=== PATIENT | female | born 1985 | race Two or more races ===

== ENCOUNTER 2022-10-24 12:21 | Emergency (ER) | payer MEDICAID, SELFPAY ==
--- NOTE | ~2022-10-24 | XR_ITS ---
Examination: X-ray left ankle X-ray left foot CLINICAL HISTORY: Foot pain. Heel pain. TECHNIQUE: Left ankle 2 views. Left foot 3 views. COMPARISON: None FINDINGS: Left ankle: Soft tissue swelling. No evidence of acute fracture or dislocation. Talar dome is intact. Ankle mortise appears maintained. Foot: No visible acute fracture or dislocation. Alignment is anatomic. Joint spaces are maintained. Moderate plantar calcaneal spur. Small-moderate Achilles tendon insertional spurring. XR/XR ankle LT min 3V IMPRESSION: No radiographic evidence of acute fracture or dislocation. Follow-up imaging for reassessment as clinically warranted. Calcaneal spurring.
--- NOTE | ~2022-10-24 | XR_ITS ---
Examination: X-ray left ankle X-ray left foot CLINICAL HISTORY: Foot pain. Heel pain. TECHNIQUE: Left ankle 2 views. Left foot 3 views. COMPARISON: None FINDINGS: Left ankle: Soft tissue swelling. No evidence of acute fracture or dislocation. Talar dome is intact. Ankle mortise appears maintained. Foot: No visible acute fracture or dislocation. Alignment is anatomic. Joint spaces are maintained. Moderate plantar calcaneal spur. Small-moderate Achilles tendon insertional spurring. XR/XR foot LT 2V IMPRESSION: No radiographic evidence of acute fracture or dislocation. Follow-up imaging for reassessment as clinically warranted. Calcaneal spurring.
[2022-10-24 13:13] VITALS: BP 138/75; PULSE 77; RESP 16; TEMP 36.3; O2SAT 100; BMI 36.6
--- NOTE | 2022-10-24 13:16 | ED.GENADULT ---
HPI - General Adult General Chief complaint: Extremity Injury, Lower <SAHARA Lr - Last Filed: 10/24/22 20:03> Stated complaint: l foot inj <SAHARA Lr - Last Filed: 10/24/22 20:03> Time Seen by Provider: 10/24/22 14:27 <SAHARA Lr - Last Filed: 10/24/22 20:03> Source: patient <SAHARA Shepard Last Filed: 10/24/22 17:30> Mode of arrival: ambulatory <SAHARA Shepard Last Filed: 10/24/22 17:30> Limitations: no limitations <SAHARA Shepard Last Filed: 10/24/22 17:30> History of Present Illness HPI narrative: Patient is a 37 year old assigned female at with no significant PMH presenting to the emergency department today with left plantar foot pain that is worse in the morning x3 days. Patient states that she was walking with a new pair of shoes on Monday and had noticed a sharp pain on the plantar aspect of her left foot since. Patient denies any dizziness, lightheadedness, abdominal pain, nausea, vomiting, fever, chills, blurry vision, double vision, loss of vision, chest pain, difficulty breathing, shortness of breath, back pain, night sweats, pain with urination, increased urinary frequency, increased urinary urgency, blood in her urine or stool, syncope or a near syncopal episode, recent trauma or falls, bowel incontinence, bladder incontinence, bowel retention, bladder retention, or any other complaints at this time. <SAHARA Shepard - Last Filed: 10/24/22 17:30> Onset (ago): day(s) (3) <SAHARA Shepard - Last Filed: 10/24/22 17:30> Location: left and lower extremity <SAHARA Shepard Last Filed: 10/24/22 17:30> Radiation: non-radiation <SAHARA Shepard Last Filed: 10/24/22 17:30> Quality: sharp <SAHARA Shepard Last Filed: 10/24/22 17:30> Relieving factors: immobilization <SAHARA Shepard Last Filed: 10/24/22 17:30> Exacerbating factors: movement <SAHARA Shepard - Last Filed: 10/24/22 17:30> Related Data Allergies/adverse reactions: Allergies Allergy/AdvReac Type Severity Reaction Status Date / Time No Known Allergies Allergy Verified 10/24/22 13:12 <SAHARA Lr - Last Filed: 10/24/22 20:03> Review of Systems Review of Systems: Yes all other systems are reviewed and are negative <SAHARA Shepard - Last Filed: 10/24/22 17:30> Constitutional: Constitutional: Reports no additional constitutional complaints <SAHARA Shepard - Last Filed: 10/24/22 17:30> Eyes: Eyes: Reports no additional eye complaints <SAHARA Shepard - Last Filed: 10/24/22 17:30> ENT: Reports system reviewed and no additional complaints, except as documented <SAHARA Shepard Last Filed: 10/24/22 17:30> Cardiovascular: Cardiovascular: Reports no additional cardiovascular complaints <SAHARA Shepard - Last Filed: 10/24/22 17:30> Respiratory: Respiratory: Reports no additional respiratory complaints <SAHARA Shepard - Last Filed: 10/24/22 17:30> Gastrointestinal: Gastrointestinal: Reports no additional gastrointestinal complaints <SAHARA Shepard Last Filed: 10/24/22 17:30> Genitourinary: Genitourinary: Reports no additional female genitourinary complaints <SAHARA Shepard - Last Filed: 10/24/22 17:30> Musculoskeletal: Musculoskeletal: Reports as per HPI, Denies deformity, Denies arthralgias, Denies joint swelling, Denies muscle weakness and Denies numbness <SAHARA Shepard - Last Filed: 10/24/22 17:30> Comments: left foot pain <SAHARA Shepard - Last Filed: 10/24/22 17:30> Neurologic: Reports system reviewed and no additional complaints, except as documented and Denies numbness <SAHARA Shepard Last Filed: 10/24/22 17:30> Psychiatric: Psychiatric: Reports no additional psychiatric complaints <SAHARA Shepard Last Filed: 10/24/22 17:30> Endocrine: Endocrine: Reports no additional endocrine complaints <SAHARA Shepard - Last Filed: 10/24/22 17:30> Hematologic/Lymphatic: Hematologic/Lymphatic: Reports no additional hematologic/lymphatic complaints <SAHARA Shepard - Last Filed: 10/24/22 17:30> Allergic/Immunologic: Allergic/Immunologic: Reports no additional allergic/immunologic complaints <SAHARA Shepard - Last Filed: 10/24/22 17:30> PMFSH Past Medical History Attestation statement: The following information was validated with the patient. <SAHARA Shepard - Last Filed: 10/24/22 17:30> Source: old records reviewed and nursing notes reviewed <SAHARA Shepard - Last Filed: 10/24/22 17:30> Social History Social History: Social History Advance Directives: No Advance Directives Information Provided: Yes <SAHARA Lr - Last Filed: 10/24/22 20:03> Physical Exam ED Vital Signs: Vital Signs - 24 hr 10/24/22 13:13 Temperature 97.3 F Pulse Rate 77 Respiratory Rate 16 Blood Pressure 138/75 Pulse Oximetry 100 Oxygen Delivery Method Room Air BMI result Body Mass Index 36.6 <SAHARA Lr - Last Filed: 10/24/22 20:03> Vital Signs - 24 hr 10/24/22 13:13 Temperature 97.3 F Pulse Rate 77 Respiratory Rate 16 Blood Pressure 138/75 Pulse Oximetry 100 Oxygen Delivery Method Room Air BMI result Body Mass Index 36.6 <SAHARA Shepard - Last Filed: 10/24/22 17:30> Const General: cooperative and healthy appearing <SAHARA Sheprad - Last Filed: 10/24/22 17:30> Nutritional Appearance: well nourished <SAHARA Shepard - Last Filed: 10/24/22 17:30> Orientation/consciousness: oriented to person, oriented to place, oriented to time and patient oriented x3 <SAHARA Shepard - Last Filed: 10/24/22 17:30> Limitations: no limitations <SAHARA Shepard Last Filed: 10/24/22 17:30> HENMT Head: Yes normal to inspection <Elif Mendoza PA - Last Filed: 10/24/22 17:30> Ears: hearing grossly normal bilaterally <Elif SchreiberSAHARA dobbins - Last Filed: 10/24/22 17:30> General nose exam: Normal external nose present <Elif MendozaSAHARA - Last Filed: 10/24/22 17:30> Face and sinus: Yes normal facial exam, No abrasion and No laceration <Elif SchreiberSAHARA dobbins - Last Filed: 10/24/22 17:30> Mouth: Normal oral and palatal mucosa present, no drooling and no muffled voice <Elif Schreibershilpi PA - Last Filed: 10/24/22 17:30> Eyes General: appearance normal, both eyes and all related structures <Elif SchreiberSAHARA dobbins - Last Filed: 10/24/22 17:30> Periorbital: periorbital findings normal <Elif SchreiberSAHARA dobbins - Last Filed: 10/24/22 17:30> Eyelids: Yes eyelids normal <Elif SchreiberSAHARA dobbins - Last Filed: 10/24/22 17:30> Conjunctivae: conjunctivae normal <Elif Schreibershilpi IN - Last Filed: 10/24/22 17:30> Pupils: Equal, round and reactive pupils present <Elif SchreiberSAHARA dobbins - Last Filed: 10/24/22 17:30> EOM: EOMs intact bilaterally <Elif SchreiberSAHARA dobbins - Last Filed: 10/24/22 17:30> Neck Neck: Yes normal visual inspection and Yes full ROM <Elif SchreiberSAHARA dobbins - Last Filed: 10/24/22 17:30> Chest Chest palpation & inspection: normal inspection of the chest <lEif Schreibershilpi IN - Last Filed: 10/24/22 17:30> Resp Effort & Inspection: normal respiratory effort and able to speak in complete sentences <Elif SAHARA Mendoza - Last Filed: 10/24/22 17:30> Auscultation: clear to auscultation bilaterally <Elif SchreiberSAHARA dobbins - Last Filed: 10/24/22 17:30> Cardio Rate: regular rate <Elif SAHARA Mendoza - Last Filed: 10/24/22 17:30> GI Inspection: Yes normal to inspection <SAHARA Shepard - Last Filed: 10/24/22 17:30> Skin General skin exam: no rashes or lesions noted <Elif Mendoza PA - Last Filed: 10/24/22 17:30> Neuro General: oriented to person, oriented to place, oriented to time, patient oriented x3, gait normal and CN's II-XI intact bilaterally <Elif Mendoza PA - Last Filed: 10/24/22 17:30> Cranial nerves: Yes CN's II-XII intact bilaterally and Yes Equal, round and reactive pupils present <Elif Mendoza PA - Last Filed: 10/24/22 17:30> Cognition (Neuro): normal cognition <Elif Schreibershilpi PA - Last Filed: 10/24/22 17:30> Motor exam (neuro): 5/5 motor strength present throughout <Elif Mendoza PA - Last Filed: 10/24/22 17:30> Sensory Exam: Normal double simultaneous stimulation for sensation <Elif SAHARA Mendoza - Last Filed: 10/24/22 17:30> Coordination: [id number] test normal <Elif Schreibershilpi PA - Last Filed: 10/24/22 17:30> Extrem Other: Plantar aspect of the left football scout to palpation without erythema/ecchymosis/deformity. <Elif Schreibershilpi PA - Last Filed: 10/24/22 17:30> General: Yes normal to inspection, Yes full ROM and Yes capillary refill normal <Elif SchreiberSAHARA dobbins - Last Filed: 10/24/22 17:30> Psych Appearance: grossly normal <Elif SAHARA Mendoza - Last Filed: 10/24/22 17:30> Mental Status: mental status grossly normal <Elif SAHARA Mendoza - Last Filed: 10/24/22 17:30> Affect: normal affect <Elif SAHARA Mendoza - Last Filed: 10/24/22 17:30> Attitude: cooperative <SAHARA Shepard - Last Filed: 10/24/22 17:30> Thought process: Normal thought process present <SAHARA Shepard - Last Filed: 10/24/22 17:30> Thought content: Normal thought content present <SAHARA Shepard - Last Filed: 10/24/22 17:30> Insight: Good insight present (Psych) <SAHARA Shepard Last Filed: 10/24/22 17:30> Course Course Course Narrative: RME: 37 yold female presents to the ED for left foot pain since wearing small shoes. patient states left heel pain. no leg/foot swelling on exam. Left and right lower extremities are the same sizes. xrays ordered <SAHARA Lr Last Filed: 10/24/22 20:03> Medical Decision Making Medical Decision Making MDM Narrative: Patient is a 37 year old assigned female at with no reported medical history presenting to the emergency department today with left foot pain. Patient's physical exam showed tenderness to palpation of the plantar aspect of the left foot but was otherwise unremarkable. Patient's left foot x-ray showed no acute process. I explained my physical exam findings as well as all test results to the patient. I answered all questions asked by the patient. I stressed the importance of the patient taking her medication as prescribed. I stressed the importance of the patient following up with her primary care provider and a manufacturing leader. I stressed the importance of the patient returning to the emergency department immediately if her symptoms were to worsen or if she were to develop any dizziness, shortness of breath, difficulty breathing, chest pain, blurry vision, loss of vision, nausea, vomiting, abdominal pain, fever, chills, back pain, or any other complaints. Patient verbalized agreement and understanding with this treatment plan and discharge. <SAHARA Shepard Last Filed: 10/24/22 17:30> Differential Diagnosis Differential Diagnoses: The differential diagnosis associated with the presentation includes <SAHARA Shepard Last Filed: 10/24/22 17:30> plantar fasciitis <SAHARA Shepard Last Filed: 10/24/22 17:30> Independent Interpretation I performed an independent interpretation of an: Plain X-Ray <SAHARA Shepard Last Filed: 10/24/22 17:30> Interpretation: My interpretation is in agreement with the radiologist's impression of these imaging studies. Examination: X-ray left ankle X-ray left foot CLINICAL HISTORY: Foot pain. Heel pain. TECHNIQUE: Left ankle 2 views. Left foot 3 views. COMPARISON: None FINDINGS: Left ankle: Soft tissue swelling. No evidence of acute fracture or dislocation. Talar dome is intact. Ankle mortise appears maintained. Foot: No visible acute fracture or dislocation. Alignment is anatomic. Joint spaces are maintained. Moderate plantar calcaneal spur. Small-moderate Achilles tendon insertional spurring. XR/XR foot LT 2V IMPRESSION: No radiographic evidence of acute fracture or dislocation. Follow-up imaging for reassessment as clinically warranted. ? Calcaneal spurring. Dictated By: Fransisco Kunz MD Signed By: Electronically signed by Fransisco Kunz MD 10/24/22 1508 <SAHARA Shepard - Last Filed: 10/24/22 17:30> Discharge Plan Discharge Clinical Impression: Plantar fasciitis <SAHARA Lr - Last Filed: 10/24/22 20:03> Patient Disposition: Home, Self-Care <SAHARA Lr - Last Filed: 10/24/22 20:03> Instructions: Plantar Fasciitis (ED), Plantar Fasciitis Exercises (ED) <SAHARA Lr Last Filed: 10/24/22 20:03> Additional Instructions: Follow up with your primary care provider and if pain persists, a manufacturing leader. Return to the emergency department immediately if your symptoms worsen or if you develop any dizziness, shortness of breath, difficulty breathing, chest pain, blurry vision, loss of vision, nausea, vomiting, abdominal pain, fever, chills, back pain, or any other complaints. <SAHARA Lr Last Filed: 10/24/22 20:03> Referrals: [facility] Family Medicine [Provider Group] (Call to establish and follow up with a primary care provider. If you already have a primary care provider, please follow up with them.) [facility] [Provider Group] (Call to establish and follow up with a primary care provider. If you already have a primary care provider, please follow up with them.) [facility] [Provider Group] (Call to establish and follow up with a primary care provider. If you already have a primary care provider, please follow up with them.) Johnny Arellano DPM [Physician] - (Call to establish and follow up with a manufacturing leader if your pain persists. ) <SAHARA Lr - Last Filed: 10/24/22 20:03> Stand Alone Forms: Work/School Release <SAHARA Lr - Last Filed: 10/24/22 20:03> Interventions: ED Discharge Assessment Last Done: 10/24/22 15:41 <SAHARA Lr - Last Filed: 10/24/22 20:03> Discharge Date/Time: 10/24/22 15:42 <SAHARA Lr - Last Filed: 10/24/22 20:03> Print Language: Amharic <SAHARA Lr - Last Filed: 10/24/22 20:03>
== END 2022-10-24 15:42 | disposition home or self-care (01) ==
PROVIDERS: Emergency Provider Emergency Medicine
DX: M72.2 Plantar fascial fibromatosis (principal); M79.672 Pain in left foot
CPT/HCPCS: 73610; 73620; 99282; 99283

== ENCOUNTER 2025-06-30 11:59 | Emergency (ER) | payer MEDICAID, SELFPAY ==
--- NOTE | ~2025-06-30 | XR_ITS ---
EXAMINATION: XR HAND, RIGHT CLINICAL INFORMATION: pain, injury , attention to the thumb COMPARISON: None available. TECHNIQUE: PA, lateral, and oblique views of the right hand. FINDINGS: The bones and soft tissues are normal. No fracture. Alignment is anatomic. Joint spaces are maintained. No erosions or soft tissue calcifications. XR/XR hand RT min 3V IMPRESSION: Normal right hand and thumb. Electronically signed by: Jostin Warner MD 06/30/2025 12:36 PM MARIBEL LUIS
[2025-06-30 12:14] VITALS: BP 137/61; PULSE 73; RESP 16; TEMP 36.8; O2SAT 98; BMI 41.6
--- NOTE | 2025-06-30 12:14 | ED.GENADULT ---
HPI - General Adult General Chief complaint: Extremity Injury, Upper Stated complaint: cant move r thumb, hurts to try Time Seen by Provider: 06/30/25 13:17 Source: patient and old records reviewed Mode of arrival: ambulatory Limitations: no limitations History of Present Illness ED Provider: OPHELIA ROMERO narrative: 39-year-old female past medical history of carpal tunnel she is right-handed she knows she can occur in [facility]. She has had 3 weeks of worsening right thumb pain and increased swelling. She is not taking any medications for this. She states it is very hard to work. She denies any falls or trauma. MD complaint: Right thumb pain Onset (ago): week(s) (3) Location: right and upper extremity Radiation: non-radiation Severity: moderate Quality: aching Pain Consistency: constant Relieving factors: none Exacerbating factors: movement Associated symptoms: denies other symptoms Treatments prior to arrival: none Related Data Previous Rx's ?Medication ?Instructions ?Recorded cyclobenzaprine 10 mg tablet 10 mg PO TID PRN muscle spasm #20 06/30/25 tabs ibuprofen 600 mg tablet 600 mg PO Q6H PRN pain #30 tabs 06/30/25 prednisone 20 mg tablet 40 mg (2 x 20 mg) PO DAILY 5 days 06/30/25 #10 tabs Allergies Allergy/AdvReac Type Severity Reaction Status Date / Time No Known Allergies Allergy Verified 06/30/25 12:16 Review of Systems Review of Systems: Yes all other systems are reviewed and are negative [facility] Past Medical History Attestation statement: The following information was validated with the patient. Source: old records reviewed Medical History Carpal tunnel syndrome Social History Social History (Updated 06/30/25 @ 13:46 by Mamie Patton DO) Patient Tobacco Use Status: Never used Tobacco Physical Exam ED Vital Signs: Vital Signs - 24 hr 06/30/25 12:14 06/30/25 13:33 06/30/25 13:40 Temperature 98.2 F 98.6 F 98.6 F Pulse Rate 73 68 68 Respiratory Rate 16 18 18 Blood Pressure 137/61 119/56 L 119/56 L Pulse Oximetry 98 100 100 Oxygen Delivery Method Room Air Room Air Room Air BMI result Body Mass Index 41.6 Appearance: Alert. Oriented X3. No acute distress. Eyes: Pupils equal, round and reactive to light. ENT: Pharynx normal. Neck: Normal inspection. Neck supple. CVS: Pulses normal. Respiratory: No respiratory distress. Abdomen: Soft and nontender. Skin: Skin warm and dry. Normal skin color. Extremities: Right thumb is swollen she has positive Tinel and Phalen sign she is neurovascularly intact Neuro: Oriented X 3. No motor deficit. No sensory deficit. Course Course Course Narrative: Rapid medical examination performed in triage by Elif Mendoza PA-C: Patient is a 39 year old female presenting to the emergency department with right thumb pain. Detailed physical exam and review of systems are deferred to the coin machine collector supervisor. Imaging ordered. Patient placed back in the waiting room pending room availability and results. Procedures Orthopedic Splinting/Casting Injury #1: Side: right Upper Extremity Injury Location: hand Upper Extremity Immobilizer: thumb spica Additional Comments: [place] iNTACT Medical Decision Making Medical Decision Making MDM Narrative: Three 9-year-old female with no significant past medical history she is right-handed she now presents with right hand and thumb swelling there is no signs of infection she is neurovascular intact. At this time I suspect she has carpal tunnel versus tendinitis. I am going to put her in a thumb spica splint. I am going to start on anti-inflammatories and refer her to our orthopedic department. Differential Diagnosis Differential Diagnoses: The differential diagnosis associated with the presentation includes CARPAL TUNNEL, THUMB STRAIN Independent Interpretation I performed an independent interpretation of an: Plain X-Ray (NO TRAUMA) Radiology Impression Discussion of test interpretation with radiology: I have reviewed the radiologist's reading. External Record Review External record reviewed: Outpatient record Prescription Management I considered prescription management with: Antibiotic and Other Discharge Plan Discharge Clinical Impression: Pain of right thumb Patient Disposition: Home, Self-Care Instructions: Arthralgia (ED) Additional Instructions: At this time x-ray shows no broken bone He will need to be evaluated by the hand surgeon You need to keep elevated and ice Take Tylenol or Motrin as needed for pain Take all medications with food Please call the hand doctor to further work up your symptoms It is important you wear the splint at night as well as during the day he can take it off to shower Prescriptions: New cyclobenzaprine 10 mg tablet 10 mg PO TID PRN (Reason: muscle spasm) Qty: 20 0RF prednisone 20 mg tablet 40 mg PO DAILY 5 Days Qty: 10 0RF ibuprofen 600 mg tablet 600 mg PO Q6H PRN (Reason: pain) Qty: 30 0RF Referrals: [facility] Orthopedic Surgeons [Provider Group] Stand Alone Forms: Work/School Release Interventions: ED Discharge Assessment Last Done: 06/30/25 13:40 Discharge Date/Time: 06/30/25 13:41 Print Language: Georgian
[2025-06-30 13:33] VITALS: BP 119/56; PULSE 68; RESP 18; TEMP 37; O2SAT 100
[2025-06-30 13:40] VITALS: BP 119/56; PULSE 68; RESP 18; TEMP 37; O2SAT 100
--- OUTSIDE RECORDS SUMMARY | 2025-06-30 19:39 | XMS_ITS | Encounter Summary ---
Author Organization [facility] Address [address] [facility] [address] [place] [phone] Phone Care Team Providers Care Material Handler Name Role Phone Orlando Smith DO Primary Care Provide r Encounter Details Date Type Department Care Team (Late st Contact Info) Description 08/26/2019 Transcribe Orders [facility] [address] [place] [address] MoodySuni mccann Colleen [address] [place] [phone] [email or web address] Social History Tobacco Use Types Packs/Day Years Used Date Smoking Tobacco: Never Smokeless Tobacco: Never Alcohol Use Standard Drinks/Week Comments Yes 0 (1 standard drink = 0.6 oz pur e alcohol) occ Comments No Sex and Gender Information Value Date Recorded Sex Assigned at Female 04/09/2018 12:25 PM EDT Legal Sex Female 6:47 PM EST Gender Identity Not on file Sexual Orientation Not on file documented as of this encounter Plan of Treatment Not on file documented as of this encounter Visit Diagnoses Not on filedocumented in this encounter Additional Health Concerns Infection Onset Date Last Indicated Resolved Time MRSA Comment:[facility] Legacy Conversion 08/11/16 05/01/2016 05/01/2016 08/31/2022 1:[address] documented as of this encounter Care Teams Material Handler Relationship Specialty Start Date End Date Orlando Smith DO [phone] (work) [email or web address] PCP - General Family Medicine 04/09/18 documented as of this encounter Additional Source Comments The information contained in this document represents components of the legal health record. It is not the complete legal health record.[facility]
--- OUTSIDE RECORDS SUMMARY | 2025-06-30 19:39 | XMS_ITS | Encounter Summary ---
Author Organization [facility] Address [address] [facility] [address] [place] [phone] Phone Care Team Providers Care Truck Greaser Name Role Phone Orlando Smith DO Primary Care Provide r Encounter Details Date Type Department Care Team (Late st Contact Info) Description 01/06/2021 Transcribe Orders [facility] [address] [place] [address] Moody Suni Colleen [address] [place] [phone] [email or web address] Social History Tobacco Use Types [...] Onset Date Last Indicated Resolved Time MRSA Comment:[facility] Legacy Conversion 08/11/16 05/01/2016 05/01/2016 08/31/2022 1:[address] documented as of this encounter Care Teams Truck Greaser Relationship Specialty Start Date End Date Orlando Smith DO [phone] (work) [email or web address] PCP - General Family Medicine 04/09/18 documented as of this encounter Additional Source Comments The information contained in this document represents components of the legal health record. It is not the complete legal health record.[facility]
--- OUTSIDE RECORDS SUMMARY | 2025-06-30 19:39 | XMS_ITS | Encounter Summary ---
Author Organization [facility] Address [address] [employer] [facility] [address] [place] [phone] Phone Care Team Providers Care Brake Lining Maker Name Role Phone Orlando Smith DO Primary Care Provide r Encounter Details Date Type Department Care Team (Late st Contact Info) Description 03/18/2020 Transcribe Orders [facility] Specimen Processing [address] [place] [address] Orlando Smith DO [address] [place] [address] Social History Tobacco Use Types Packs/Day Years [...] Onset Date Last Indicated Resolved Time MRSA Comment:[facility] Legacy Conversion 08/11/16 05/01/2016 05/01/2016 08/31/2022 1:[address] documented as of this encounter Care Teams Brake Lining Maker Relationship Specialty Start Date End Date Orlando Smith DO [email or web address] PCP - General Family Medicine 04/09/18 documented as of this encounter Additional Source Comments The information contained in this document represents components of the legal health record. It is not the complete legal health record.[facility]
--- OUTSIDE RECORDS SUMMARY | 2025-06-30 19:39 | XMS_ITS | Encounter Summary ---
Author Organization [facility] Address [address] [employer] [facility] [address] [place] [phone] Phone Care Team Providers Care Generator Repairer Name Role Phone Orlando Smith DO Primary Care Provide r Encounter Details Date Type Department Care Team (Late st Contact Info) Description 03/01/2020 Transcribe Orders [facility] Specimen [facility] [address] [facility] [place] [address] Li Garcia [address] [place] [address] Social History Tobacco Use Types Packs/Day Years [...] Onset Date Last Indicated Resolved Time MRSA Comment:[facility] Legacy Conversion 08/11/16 05/01/2016 05/01/2016 08/31/2022 1:[address] documented as of this encounter Care Teams Generator Repairer Relationship Specialty Start Date End Date Orlando Smith DO [email or web address] PCP - General Family Medicine 04/09/18 documented as of this encounter Additional Source Comments The information contained in this document represents components of the legal health record. It is not the complete legal health record.[facility]
--- OUTSIDE RECORDS SUMMARY | 2025-06-30 19:39 | XMS_ITS | Encounter Summary ---
Author Organization [facility] Address [address] [employer] [facility] [address] [place] [phone] Phone Care Team Providers Care Laboratory Apparatus Glass Blower Name Role Phone Orlando Smith DO Primary Care Provide r Encounter Details Date Type Department Care Team (Late st Contact Info) Description 03/24/2020 Transcribe Orders [facility] Specimen Processing [address] [place] [address] Li Garcia [address] [place] [address] Social History Tobacco Use Types Packs/Day Years [...] Onset Date Last Indicated Resolved Time MRSA Comment:[facility] Legacy Conversion 08/11/16 05/01/2016 05/01/2016 08/31/2022 1:[address] documented as of this encounter Care Teams Laboratory Apparatus Glass Blower Relationship Specialty Start Date End Date Orlando Smith DO [email or web address] PCP - General Family Medicine 04/09/18 documented as of this encounter Additional Source Comments The information contained in this document represents components of the legal health record. It is not the complete legal health record.[facility]
--- OUTSIDE RECORDS SUMMARY | 2025-06-30 19:39 | XMS_ITS | Encounter Summary ---
Author Organization [facility] Address [address] [employer] [facility] [address] [place] [address] Phone Care Team Providers Care Computer Operations Technician Name Role Phone Orlando Smith DO Primary Care Provide r Encounter Details Date Type Department Care Team (Late st Contact Info) Description 08/26/2019 Transcribe Orders [facility] [address] [place] [address] MoodySuni mccann Colleen [address] [place] [phone] [email or web address] Social History Tobacco Use Types Packs/Day Years [...] Onset Date Last Indicated Resolved Time MRSA Comment:[facility] Legacy Conversion 08/11/16 05/01/2016 05/01/2016 08/31/2022 1:[address] documented as of this encounter Care Teams Computer Operations Technician Relationship Specialty Start Date End Date Orlando Smith DO [phone] (work) [email or web address] PCP - General Family Medicine 04/09/18 documented as of this encounter Additional Source Comments The information contained in this document represents components of the legal health record. It is not the complete legal health record.[facility]
--- OUTSIDE RECORDS SUMMARY | 2025-06-30 19:39 | XMS_ITS | Clinical Summary ---
Author Organization [employer] Address [address] [facility] [address] [place] [address] Care Team Providers Care Detective Captain Name Role Phone Unavailable Primary Care Provider Unavailabl e Social History Tobacco Use Types Packs/Day Years Used Date Smoking Tobacco: Never Assessed Comments Unknown Sex and Gender Information Value Date Recorded Sex Assigned at Not on file Legal Sex Female 1:44 PM EST Gender Identity Not on file Sexual Orientation Not on file Plan of Treatment Health Maintenance Due Date Last Done Comments Depression Screening 1985 Disability Screening 1985 Alcohol/Substance Use Screening 1997 Tobacco Screening 1997 Family Planning (PISQ) 2000 HPV Vaccines (1 - 3-dose series) 2000 DTaP/Tdap/Td Vaccines (1 - Tdap) 2004 Hepatitis B Vaccines (1 of 3 - 19+ 3-dose series) 2004 Pap Smear 2006 Cervical Cancer Screening 2015 HPV/Cotest 2015 COVID-19 Vaccine (1 - 2024-2 6 season) 2025 Influenza Vaccine (#1) 2025 Zoster Vaccines (1 of 2) 2035 RSV Patients and Pa tients Aged 60 years or older (1 - 1-dose 75+ series) 2060 HIB Vaccines Aged Out No longer eligi ble based on patient's age to complete this topic Hepatitis A Vaccines Aged Out No long er eligible based on patient's age to complete this topic IPV Vaccines Aged Out No longer eligi ble based on patient's age to complete this topic Meningococcal B Vaccine Aged Out No l onger eligible based on patient's age to complete this topic Meningococcal Vaccine Aged Out No armani mitch eligible based on patient's age to complete this topic Pneumococcal Vaccine: Pediat rics (0 to 5 Years) and At-Risk Patients (6 to 49) Years Aged Out No longer eligible b ased on patient's age to complete this topic RSV under 20 months Aged Out No longe r eligible based on patient's age to complete this topic Rotavirus Vaccines Aged Out No longer eligible based on patient's age to complete this topic
--- OUTSIDE RECORDS SUMMARY | 2025-06-30 19:39 | XMS_ITS | Clinical Summary ---
Author Organization [facility] Address [address] [employer] [place] [phone] Phone Care Team Providers Care Clinical Coordinator Name Role Phone Orlando Smith Primary Care Provide r Allergies Active Allergy Reactions Criticality Noted Date Comments Minocycline Hcl Rash Low 07/03/2019 MINOCIN Skin Cleanser Combination No.4 Rash Low 07/03 MINOCIN Sulfa (Sulfonamide Antibiotics) Rash Medium 05/17 Medications levothyroxine (SYNTHROID, LEVOTHROID) 137 MCG tablet Take 1 tablet by mouth daily. Take one tablet everyday 11/06/19 15 Active PNV95/IRON FUM/FOLIC ACID ( MULTIVITAMINS ORAL) Reported on 09/12/2016 05/26/20 14 Active atorvastatin (LIPITOR) 40 MG tablet Take 40 mg by mouth. 04/22/20 16 Active cyanocobalamin 500 MCG tablet Take 500 mcg by mouth daily. 04/03/20 18 Active levonorgestrel (MIRENA) 20 mcg/24 hours (5 yrs) 52 mg intrauterine device 1 Device by Intrauterine route Once every 5 years. Active albuterol 90 mcg/actuation inhaler Inhale 2 puffs into the lungs. 01/19/20 18 Active phentermine (ADIPEX-P) 37.5 mg tablet Take 37.5 mg by mouth. 04/03/20 18 Active sodium chloride (AYR SALINE) 0.65 % Drop 2 sprays by Nasal route. 08/31/19 18 Active levothyroxine (SYNTHROID, LEVOTHROID) 137 MCG tablet TAKE 1 TABLET BY MOUTH EVERY DAY 11/04/19 21 Active esgigjvz-veh-mvre ous gluconate (CENTRUM WITH IRON) 9 mg iron/15 mL Liqd Take 15 mL by mouth daily. Active Active Problems Problem Noted Date Diagnosed Date IUD (intrauterine device) in place 04/03/2018 Overview (07/03/2019): Overview: mirena placed 2014 Mild intermittent asthma without complication Major depression in partial remission 01/01/2018 Overview (07/03/2019): Overview: Pt reported that she had Post- Depression (depressed mood, loss of appetite and SI) 3 years ago after the of her youngest child. Increased depressed mood started at end of last year after of her maternal aunt and has worsened since grandmother's terminal illness has worsened. No current SI. Hyperlipidemia 05/28/2016 Overview (07/03/2019): Lab Results Component Value Date TRIGLYC 128 04/20/2016 CHOL 316* 04/20/2016 HDL 50 04/20/2016 LDL 240* 04/20/2016 NONHDL 266.0 04/20/2016 With this result the patient was started on atorvastatin Hypothyroidism 05/26/2014 Overview (09/05/2014): Hypothyroidism Obesity 05/26/2014 Overview (09/05/2014): Obesity; BMI 34 S/P section 05/26/2014 Overview (09/05/2014): S/P section; Primary Low tranverse uterine incision for FTP Meconium Acne vulgaris 11/30/2012 Overview (09/05/2014): Acne vulgaris Immunizations Immunization Administration Dates Next Due Influenza Quadrivalent w/ Preservative IM 2013 MMR 11/28/2014(Deferred: Other - 00) Tdap 09/15/2014 Varicella 11/28/2014(Deferred: Other - 00) Family History Medical History Relation Comments Asthma Mother asthma Breast cancer Neg Hx Colon cancer Neg Hx Ovarian cancer Neg Hx Relation Status Comments Mother Social History Tobacco Use Types Packs/Day Years Used Date Smoking Tobacco: Never Smokeless Tobacco: Never Alcohol Use Standard Drinks/Week Comments Yes 0 (1 standard drink = 0.6 oz pur e alcohol) occ Education Answer Date Recorded Are you interested in more education? Not on carole e 11/21/2022 Are you concerned about learning? Not on file 11/21/2022 No 11/21/2022 No 11/21/2022 Digital Access Answer Date Recorded No 12/11/2022 No 12/11/2022 No 12/11/2022 Reliable internet access at home? Not on file 12/11/2022 Device with a working camera? Not on file Comments No Sex and Gender Information Value Date Recorded Sex Assigned at Female 04/09/2018 12:25 PM EDT Legal Sex Female 6:47 PM EST Gender Identity Not on file Sexual Orientation Not on file Last Filed Vital Signs Vital Sign Reading Time Taken Comments Blood Pressure 128/82 11/12/2020 11:07 AM EDT Pulse 79 04/09/2018 12:27 PM EDT Temperature 36.9 C (98.4 F) 04/09/2018 12:27 PM EDT Respiratory Rate 16 04/09/2018 12:27 PM EDT Oxygen Saturation 100% 04/09/2018 12:27 PM EDT Inhaled Oxygen Concentration - - Weight 87.1 kg (192 lb) 11/12/2020 11:07 AM EDT Height 147.3 cm (4' 10 ) 11/12/2020 11:07 AM EDT Body Mass Index 40.13 11/12/2020 11:07 AM EDT Plan of Treatment Health Maintenance Due Date Last Done Comments DEPRESSION SCREENING 1997 PNEUMOCOCCAL VACCINES (0-49 years) (1 of 2 - PCV) 2004 TSH LEVEL 08/26/2020 08/26/2019, 08/17, 02/20/2018, Additional history exists PAP SMEAR 07/03/2022 07/03/2019, 06/16, 09/12/2016, Additional history exists Adult Td,Tdap Booster 09/15/2024 09/15/2014 INFLUENZA VACCINE (#1) 2025 0, 06/26/2014, 03/31/2014 COVID-19 VACCINE ( season) 2025 12/02/2020 IUD 11/12/2028 11/12/2020 HEPATITIS C SCREENING Completed 08/26/2019 , 08/26/2019, 12/21/2017, Additional history exists HIV ONE-TIME SCREENING (18-65 YEARS) Completed 08/26/2019, 06/23/2008 SMOKING STATUS SCREENING (Once After 26 Yrs) Completed 11/12/2020 HEPATITIS A VACCINES Aged Out No long er eligible based on patient's age to complete this topic HIB VACCINES Aged Out No longer eligi ble based on patient's age to complete this topic MENINGOCOCCAL VACCINES (ACWY) Aged Out No longer eligible based on patient's age to complete this topic MENINGOCOCCAL VACCINES (B) Aged Out N o longer eligible based on patient's age to complete this topic Medical Devices Implanted Type Area Director And Professor Device Identifier Shelf Expiration Date Model / Serial / Lot Iud Implanted: (Quantity not on file) Intrauterine Device Procedures Procedure Name Priority Date/Time Associated Diagnosis Comments HEPATITIS C ANTIBODY, QUALITATIVE Routine 08/26/2019 9:58 AM EST TSH WITH REFLEX Routine 08/26/2019 9:58 AM EST PAP TEST Routine 07/03/2019 9:51 AM EST from Last 3 Months or Most Recently Relevant to Health Maintenance Results * TSH with reflex (08/26/2019 9:58 AM EST) SCREENING PANEL: TSH 1.28 0.34 - 5.00 uIU/mL ED [facility] 08/26/2019 9:58 AM EST 08/26/2019 1:45 PM EST us Orlando Smith DO LAB BLOOD BKR ORDERAB LES Final Result [address] [address], [facility] [phone] * Hepatitis C antibody, qualitative (08/26/2019 9:58 AM EST) HCV ANTIBODY Negative Negative [facility] 08/26/2019 9:58 AM EST 08/26/2019 1:45 PM EST us Orlando Smith DO LAB BLOOD BKR ORDERAB LES Final Result Performing Organization Address City/State/[facility] Co de Phone Number [address] [phone] * Pap Smear (07/03/2019 9:51 AM EST) 07/03/2019 9:51 AM EST 07/04/2019 9:51 AM EST Narrative SEE NARRATIVE - 07/15/2019 9:58 [place] [address] Security Screener: Waldo Griggs MD [employer] Cytology Report FINAL DIAGNOSIS A. CERVICAL, LIQUID BASED SPECIMEN: SPECIMEN ADEQUACY: Satisfactory for evaluation; transformation zone present. INTERPRETATION: NEGATIVE FOR INTRAEPITHELIAL LESION OR MALIGNANCY. Coccobacilli consistent with shift in nory This specimen was analyzed by the automated ThinPrep Imaging System (Sharalike Jhonathan.) and the selected ross were reviewed by a title i assistant. Electronically Signed Out By: Edith OSMAN(ASCP) The Pap test is a screening test primarily for squamous cancers and precursors and has associated false-negative and false-positive results. New technologies such as liquid-based preparations may decrease but will not eliminate all false-negative results. Regular sampling and follow-up of unexplained clinical signs and symptoms are recommended to minimize false negative results. PROCEDURES/ADDENDA HPV Testing (Reflex) Ordered Date: 07/09/2019 HPV High Risk Negative Negative for high risk HPV mRNA by the Aptima HPV assay. This nucleic acid amplification assay qualitatively detects the E6/E7 viral mRNA of 14 high-risk HPV types (16, 18, 31, 33, 35, 39, 45, 51, 52, 56, 58, 59, 66, and 68) without distinguishing the specific HPV type or types present. CLINICAL HISTORY Date of Last Menstrual Period: Not Provided Contraceptive History: Mirena: MENSTRUAL SUPPRESSION Other Clinical Conditions: Routine: Z01.419 SPECIMEN SOURCE A: CERVICAL, LIQUID BASED SPECIMEN GROSS DESCRIPTION One ThinPrep vial received from which a single Pap-stained slide was prepared. Processing and cytotech screening of this specimen performed at [facility], [address] [place], [place] [id number]. Patient Name: AUTUMN BOYKIN : 1985 (Age: 33) Sex: F Institution: [facility] Location: [facility] Date of Collection: 07/03/2019 Date of Reported: 07/09/2019 15:33 Ordered By: Dralene Dale CNM Copy To: Darlene Dale CNM CYTOLOGY ORDERABLES Luciano luis Result - Final SEE NARRATIVE from Last 3 Months or Most Recently Relevant to Health Maintenance [place] [address] [place] [address] [employer] [place] [address] [place] [address] [employer] [place] [place] [address] [place] [address] C3 ACO [facility] C3 ACO [place] [id number] Care Teams Clinical Coordinator Relationship Specialty Start Date End Date Orlando Smith DO [email or web address] PCP - General Family Medicine 04/09/18 Additional Source Comments The information contained in this document represents components of the legal health record. It is not the complete legal health record.[facility]
== END 2025-06-30 13:41 | disposition home or self-care (01) ==
PROVIDERS: Emergency Provider Emergency Medicine
DX: M79.644 Pain in right finger(s) (principal)
CPT/HCPCS: 29130; 73130; 99282; 99283

== ENCOUNTER → 2025-06-30 12:15 | Outpatient (BNV) | payer MEDICAID, SELFPAY | PROVIDERS: Visit Provider Radiology Diagnostic Radiology | DX: M79.641 Pain in right hand (principal) | CPT/HCPCS: 73130 ==